=== PATIENT | female | born 1955 | race Caucasian/White ===

== ENCOUNTER 2016-10-07 18:29 | Inpatient (IN) | payer OTHER ==
[~2016-10-07] VITALS: Ht 160 cm; Wt 138.8 kg
--- NOTE | ~2016-10-07 | CATHLAB ---
[place] [address] [facility] [place] [address] INVASIVE PROCEDURE REPORT Name: FABIENNE GASTELUM Room #: 201-P [facility] IN ..#: [id number] Admission: 10/07/16 Attend Phys: Rogelio Coelho, Discharge: 10/11/16 Date of : 53 Date of Service: 11/07/16 1023 Report #: [id number] THIS REPORT FOR: //name// APPROVED REPORT Patient Location: Room #: Cardiac catheterization report Patient: Fabienne Gastelum Date of service 10 October 2016 Indications: 60-year-old female patient with chest pains with abnormal perfusion scan Security Public Safety Officer: Stan Rivera M.D. [facility] Procedure: #1 left heart catheterization #2 selective left and right coronary angiography #3 measurement of left ventricular end-diastolic pressure #4 ptca of the RCA and AMY stent deployment to the Proximal RCA with medtronics Resolute stent #5 supervision of conscious sedation Procedure: After informed consent was obtained the patient was brought to the cardiac catheterization laboratory supple condition. The right groin was prepped and draped in usual sterile manner. Utilizing a modified Seldinger technique after instillation of lidocaine for local anesthetic the right femoral artery was accessed without complications. 4 Moroccan sheath was then inserted. Under fluoroscopic realization a standard Chasidy left catheter was advanced and engaged the left coronary ostium. Cineangiography then ensued and oblique and angulated projections. The catheter was then removed and under similar fashion. Chasidy right catheter was advanced and engaged the right coronary ostium. Following angiography [facility] [address] [place] [address] INVASIVE PROCEDURE REPORT Name: FABIENNE GASTELUM Room #: 201-P [facility] IN [facility].#: [id number] Admission: 10/07/16 Attend Phys: Rogelio Coelho, Discharge: 10/11/16 Date of : 53 Date of Service: 11/07/16 1023 Report #: [id number] and oblique projections the catheter was then utilized to access the left ventricular chamber where pressures were obtained. Catheter was then removed and measurements of a pullback performed. At this point time was felt that percutaneous revascularization was indicated. 4 Moroccan sheaths were upsized the 6 Moroccan sheaths and a standard Chasidy right catheter was engaged into the right coronary ostium. Under fluoroscopic realization a 014 wire was then advanced distal to the lesion. A Medtronic balloon was then placed up across the initial lesion and dilated. Subsequent to this utilizing a Magnant as then exchanged mechanism and the Medtronic AMY resolute stents were then placed. These were expanded to optimal atmospheres without complications. Catheter was then removed wire removed sheaths sewn in place. Patient tolerated procedure well there were no complications. Findings: 1. Fluoroscopy: Under fluoroscopic realization there was evidence of calcific plaque involving epicardial coronary artery. No calcific plaquing identified and no valvular intramyocardial structures of the heart 2. Hemodynamics: a. Aortic pressure: 135/64 b. Left ventricular end-diastolic pressure: 25-30 c. Post intervention aortic pressure: 133/64 3. Rhythm: The patient's rhythm was sinus about entire procedure. 4. Angiography: This is a right coronary dominant system a. Left main: Normal or drink caliber bifurcates that into the descending left circumflex free of high-grade disease b. Left anterior descending: Small moderate caliber vessel which courses in the anterior interventricular sulcus with luminal irregularities. And continues in the mid and distal portion hypokinetic apex and terminating in the posterior aspect of the left ventricle. He gives rise to first diagonal branch and smaller second diagonal branches in its course with septal perforators all of which have luminal irregularities. c. Left circumflex: Small nondominant vessel which courses laterally with 2 small terminal marginal branches prior which is a 90% eccentric lesion. Lives between 2.0-2.5 mm diameter d. Right coronary artery: Moderate caliber dominant vessel which courses in the AV groove. The proximal segment there is a 90% focal lesion proximally involving a longer segment prior to the acute marginal 90% stenosis. The vessel then reconstitutes giving rise to [address] [address] INVASIVE PROCEDURE REPORT Name: FABIENNE GASTELUM MARIO Room #: 201-P [facility] IN M.R.#: [id number] Admission: 10/07/16 Attend Phys: Rogelio Coelho, Discharge: 10/11/16 Date of : 53 Date of Service: 11/07/16 1023 Report #: [id number] posterior descending posterior lateral branch was free of high-grade disease. e. Post intervention angiography: The right coronary artery is unchanged except for the following at the site of previous high-grade stenosis the vessel is widely patent with stents placed and noted. Flow is MATTHIEU 3 without any loss of side branch distal embolization or intraluminal thrombus noted. Conclusion Conclusion: 1. Coronary artery disease, severe, two-vessel 2. Successful percutaneous revascularization of the right coronary artery utilizing Medtronic resolute AMY stents 3. Abnormal hemodynamics with elevated left ventricular end-diastolic pressures 4. The patient will follow routine post stenting protocol to include dual antiplatelet therapy. <ELECTRONICALLY SIGNED> By: Stan Rivera MD 11/07/16 1023 1023 1023 Stan Rivera MD /INF
--- NOTE | ~2016-10-07 | HC ---
[facility] [place] [address] CONSULTATION Name: RANCHO GASTELUM Room #: 201-P ADM IN M.R.#: [id number] Admission: 10/07/16 Attend Phys: Meg Valdez Discharge: Date of : 53 Report #: [id number] THIS REPORT FOR: //name// CC: Felicita Valdez DATE OF SERVICE: 10/08/2016 HISTORY OF PRESENT ILLNESS: This is a very pleasant 60-year-old morbidly obese female who presented to the emergency room due to drowsiness. The patient states she was having significant problems with shortness of breath on day and presented to the emergency room. Of interest, reviewing old records, in 2014, she had an identical presentation with slight bump in the enzymes. She had a perfusion scan a day before which was negative for ischemia at that time and therefore, no further cardiac evaluation was done then. She now presented because of having increasing fatigability, tired, and sleepiness, but more so she states that she could not catch her breath. She states this came on fairly suddenly, although she had been on significant pain control medication as well as sleeping pill that she took prior to bed. She denies palpitations, has no chest tightness, heaviness or fullness and in fact at the time of angioplasty in 1991, she did not have symptoms then either. PAST MEDICAL HISTORY: 1. Morbid obesity. 2. Diabetes mellitus, not controlled with blood sugars running fasting in 140s. 3. Coronary artery disease, status post angioplasty without information to localize the intervention. 4. Chronic pain syndrome. 5. Macular degeneration. 6. History of Graves disease. 7. Degenerative joint disease. 8. COPD. 9. Gouty arthritis. 10. Severe anxiety, taking Xanax. 11. Sleep apnea syndrome, does not have the CPAP machine, but wears O2 at home. 12. in appearance. MEDICATIONS AT HOME: Cephalexin, potassium, Coreg, Amaryl, Lasix, Zoloft, Xanax, trazodone, Lopressor, Glucophage, nifedipine, Plavix, Humalog, Synthroid, OxyContin, aspirin, Neurontin, Celexa, Lantus, Valium, Claritin, Lipitor, Darvocet-N 100 and Mehama 5/325 p.r.n. PAST SURGICAL HISTORY: Significant for: 1. Multiple incision and drainage of right-sided perirectal abscesses. 2. Angioplasty of the coronaries in 1991. [facility] [address] [place] [address] CONSULTATION Name: RANCHO GASTELUM Room #: 201-P [facility] IN .R.#: [id number] Admission: 10/07/16 Attend Phys: Meg Valdez Discharge: Date of : 53 Report #: [id number] 3. Paraspinous injections. ELECTROCARDIOGRAM: Demonstrates sinus mechanism, no acute changes are noted. LABORATORY DATA: Demonstrates a BUN and creatinine of 27 and 1.1. White count is 11.6, hemoglobin is 12.1, hematocrit 38.4 with a platelet count of 250,000. RADIOLOGIC: Bibasilar infiltrates are noted with mild cardiomegaly present. REVIEW OF SYSTEMS: Except for symptoms previously mentioned and those commensurate with comorbid state, the 10-point review of systems is negative. PHYSICAL EXAMINATION: GENERAL: Morbidly obese female resting comfortably in no acute distress. VITAL SIGNS: Present and noted in the chart. HEENT: Normocephalic, atraumatic. Pupils are equal, round, reactive to light and accommodation. Extraocular muscles are intact. Sclerae and conjunctivae are anicteric. NECK: JVD is normal. Carotid upstrokes are bilaterally symmetrical. No bruits are heard. No thyromegaly. No lymphadenopathy. LUNGS: Clear to auscultation. No wheezes, rhonchi or crackles. No CVA tenderness. CARDIAC: Demonstrates a regular rhythm. Normal first and second heart sounds. No ventricular or atrial gallops, no rubs noted. No murmurs. No lifts or heaves, PMI normal. ABDOMEN: Demonstrates a cellulitic process in her pannus, but nondistended and normal bowel sounds noted. EXTREMITIES: Without cyanosis, clubbing or edema. Distal pulses are intact. DTR symmetrical. NEUROLOGIC: Cranial nerves 2-12 are grossly normal and symmetrical. PSYCHIATRIC: Alert, oriented with normal affect. SKIN: Warm and dry. IMPRESSION: 1. Dyspnea with elevated troponins. This is similar to what she had in the past. Anginal equivalent is clearly possible, but also the work of breathing due to chronic obstructive pulmonary disease may also have been the factor. We will monitor closely and evaluate. She is hemodynamically and electrically stable at present. 2. Coronary artery disease by history with what appears to be a non-ST segment elevation myocardial infarction. Again, electrically and hemodynamically stable. We will evaluate and discuss options. This is very similar to what she had 2 years ago and perfusion scan was negative, but in view of the lack of secondary prevention, I suspect that we have dramatic progression of disease. I discussed options of optimizing medical regimen versus invasive diagnosis studies. She does want to know exactly what is present, so we will proceed with [address] [address] CONSULTATION Name: RANCHO GASTELUM Room #: 201-P ADM IN M.R.#: [id number] Admission: 10/07/16 Attend Phys: Meg Lee Yaneliglo Discharge: Date of : 53 Report #: [id number] angiography on Monday. The risks, complications and alternatives to cath, angioplasty and conscious sedation were discussed with the patient, who voices understanding and wishes to proceed. 3. Diabetes mellitus, not well controlled, as per primary care. 4. Tobacco use and dependence. The patient states that she has quit 6 months ago and on the patches, although apparently on that. Either way, we emphasized the need for cessation. 5. Hypertension. We will monitor closely, seems to be fairly well controlled here in the hospital. <ELECTRONICALLY SIGNED> By: Stan Rivera MD 10/09/16 1142 1147 0141 Stan Rivera MD /nt
--- NOTE | ~2016-10-07 | HC ---
[facility] [place] [address] CONSULTATION Name: RANCHO GASTELUM Room #: 201-P ADM IN M.R.#: [id number] Admission: 10/07/16 Attend Phys: Meg Valdez Discharge: Date of : 53 Report #: [id number] THIS REPORT FOR: //name// CC: Felicita Valdez DATE OF SERVICE: 10/08/2016 HISTORY OF PRESENT ILLNESS: We were asked to see the patient due to a history of overdoses and chronic anxiety and presentation to the hospital with obtundation and the patient at this point is calm, compliant. She is denying suicidal hallucinations. She is pleasant. Her biggest concern is getting a Monica Mist with ice. She is denying any severe anxiety or depression. She feels that she made a mistake by combining her sleep aid in close proximity to pain pill and her Xanax and that could have led to the inability to breathe. She is on opiates. She is on Ambien. She does have a 1 mg dose of Xanax that in combination could represent something such as this. She is adamantly denying that she is a danger to herself. PAST PSYCHIATRIC HISTORY: She has a history of depression and anxiety. MEDICAL HISTORY: Obesity, hypertension, diabetes, thyroid issues, COPD, O2 dependent, history of CHF, chronic kidney disease stage 3. SOCIAL HISTORY: She lives with the roommates. She denies drinking. She says that she does not abuse her medications. She says her mood and anxiety have been under fair control. She has had previous admissions for misuse of medications over the years and those are noted on the chart, both at [place] and at [place] at least suspicion of that. Now, the patient adamantly denies this and she is complicated in terms of medical issues and some of the medications she is on could represent a narrow therapeutic window that it would be if taken incorrectly or the wrong timing or in combination as she said could result in difficulty breathing given also her complicated medical health. ALLERGIES: TO TYLENOL. FAMILY PSYCHIATRIC HISTORY: She has depression in the family. MENTAL STATUS EXAMINATION: Alert and oriented. Linear thought process. Affect is full range. Mood is positive. Thought process linear. Thought content, no suicidal or homicidal thoughts, delusions, or perceptual substances. Insight and judgment at this point is good and she says she will avoid taking medications appropriately so she will take them as prescribed. She will consider cutting down her Xanax if possible and I did caution her and given her [facility] [address] [place] [address] CONSULTATION Name: RANCHO GASTELUM Room #: 201-P ADM IN M.R.#: [id number] Admission: 10/07/16 Attend Phys: Meg Valdez Discharge: Date of : 53 Report #: [id number] difficulties with breathing that the use of benzodiazepines or benzodiazepine like medications could represent a dangerous such as this including opiates, but she says she has to have the opiates for her pain and she will respect how the other medications are prescribed. She would bring up these things with her daughter once she has followup. She is alert and oriented and who can do simple mathematics, is showing a reasonable memory for recent and remote events. She has a linear thought process. No suicidal or homicidal thoughts. Good abstract thought. IMPRESSION: AXIS I: Major depressive disorder, now moderate; anxiety, otherwise specified. AXIS II: Deferred. AXIS III: As above. AXIS IV: Moderate. AXIS V: Global Assessment Functioning currently 60%. PLAN: At this point, the patient was cautioned about how to take medications correctly. She agrees to this approach. She is denying that she abuses medications. She denies that she is a risk to herself. She has been pleasant, calm, and cooperative here and also off of 1:1 and acting appropriately in a way that does not demonstrate a risk to herself. Therefore, at this point, the patient can be discharged from the psychiatric standpoint once medically stabilized and I have cautioned her to consider cutting back on her Xanax and absolutely take it in the morning at least an hour away from any opiate medication and at least 6 hours away from any Ambien preparation. The patient agrees to this. Thank you for the consultation. If anything further, give me a call. By: [id number] Suraj Maddox MD /brooke
--- NOTE | ~2016-10-07 | 2DMMODE ---
[facility] [address] [place] [address] 2 D/M-MODE ECHOCARDIOGRAM Name: RANCHO GASTELUM Room #: 201-P ADM IN M.R.#: [id number] Admission: 10/07/16 Attend Phys: Meg Groves Discharge: Date of : 53 Date of Service: 10/08/16 1600 Report #: [id number] THIS REPORT FOR: //name// APPROVED REPORT Study performed: 10/08/2016 09:34:13 EXAM: Comprehensive 2D, Doppler, and color-flow Echocardiogram Patient Location: Bedside Room #: 201 Other Information Study Quality: Technically Difficult Indications COPD Diabetes CAD Hypertension/HDD Echo Enhancing Agent Indication: Endocardial border delineation Agent(s) / Amount(s) Used: Definity 2 cc 2D Dimensions RVDd: 35.49 mm LVEF(%): 55.16 (>50%) IVSd: 13.07 (7-11mm) LVOT Diam: 19.54 (18-24mm) LVDd: 48.65 mm PWd: 13.00 (7-11mm) Ascending Ao: 31.14 (22-36mm) LVDs: 34.67 (25-40mm) Aortic Root: 25.28 mm IVC: 26.00 mm Mccartney's LVEF: 55.16 % Volumes Left Atrial Volume (Systole) Single Plane 4CH: 67.61 mL Single Plane 2CH: 54.05 mL LA ESV Index: 30.00 mL/m2 Aortic Valve AoV Peak Camilo.: 2.02 m/s AO Peak Gr.: 16.32 mmHg LVOT Max P.09 mmHg LVOT Max V: 1.33 m/s PAUL Vmax: 1.98 cm2 [facility] [place] [address] [place] [address] 2 D/M-MODE ECHOCARDIOGRAM Name: RANCHO GASTELUM Room #: 201-P [facility] IN .R.#: [id number] Admission: 10/07/16 Attend Phys: Meg Groves Discharge: Date of : 53 Date of Service: 10/08/16 1600 Report #: [id number] Mitral Valve E/A Ratio: 1.3 MV Decel. Time: 191.96 ms MV E Max Camilo.: 1.35 m/s MV A Camilo.: 1.05 m/s MV PHT: 55.67 ms IVRT: 58.82 ms Pulmonary Valve PV Peak Camilo.: 1.29 m/s PV Peak Gr.: 6.70 mmHg Pulmonary Vein P Vein S: 0.45 m/s P Vein A: 0.16 m/s P Vein D: 0.67 m/s P Vein A Dur.: 110.7 msec P Vein S/D Ratio: 0.67 Tricuspid Valve RAP Estimate: 10.00 mmHg Left Ventricle The left ventricle is normal size. Regional wall motion is not well visualized but grossly normal. Mild concentric left ventricular hypertrophy. The overall left ventricular systolic function appears normal. LVEF is 55-60%. Grade II diastolic dysfunction Right Ventricle The right ventricle is normal size. The right ventricular systolic function is normal. Atria The left atrium size is normal. The right atrium size is normal. Aortic Valve The aortic valve is normal in structure. No aortic regurgitation is present. There is no aortic valvular stenosis. Mitral Valve The mitral valve is normal in structure. Trace mitral regurgitation. No evidence of mitral valve stenosis. Tricuspid Valve Tricuspid valve is not well visualized. Unable to assesss PA pressure. There is no tricuspid valve regurgitation noted. [facility] [address] [place] [address] 2 D/M-MODE ECHOCARDIOGRAM Name: RANCHO GASTELUM Room #: 201-P [facility] IN M.R.#: [id number] Admission: 10/07/16 Attend Phys: Meg Groves Discharge: Date of : 53 Date of Service: 10/08/16 1600 Report #: [id number] Pulmonic Valve The pulmonary valve is normal in structure. There is no pulmonic valvular regurgitation. Great Vessels The aortic root is normal in size. The ascending aorta is normal in size. IVC is dilated and collapses >50% with inspiration. Pericardium Small effusion vs epicardial fat. <Conclusion> Technically limited study Mild concentric left ventricular hypertrophy. LVEF is 55-60%. Grade II diastolic dysfunction Regional wall motion is not well visualized but grossly normal The aortic valve is grossly normal in structure. There is no aortic stenosis or insufficiency. The mitral valve is normal in structure. No mitral insufficiency Pulmonary artery pressure could not be reliably ascertained. Small effusion vs more likely epicardial fat. <ELECTRONICALLY SIGNED> By: Michele Hwang MD, FACC 10/08/161599 99 99 Michele Hwang MD, FAC /INF
--- NOTE | ~2016-10-07 | EKG ---
[address] [place] [address] ELECTROCARDIOGRAM REPORT Name: RANCHO GASTELUM Room #: 201-P ADM IN M.R.#: [id number] Admission: 10/07/16 Attend Phys: Meg Valdez Discharge: Date of : 53 Report #: [id number] THIS REPORT FOR: //name// [facility] ED Test Date: 2016-10-07 Test Time: 18:30:40 Pat Name: RANCHO GASTELUM Department: Room: 201 Gender: F Guest Services Ambassador: Juan MACIAS : 1955 Requested By: Monica Hong Order Number: [id number] MD: Michele Hwang Measurements Intervals [place] Rate: 94 P: 14 ID: [id number] QRS: 27 QRSD: 96 T: 64 QT: 384 QTc: 481 Interpretive Statements Sinus rhythm Occasional atrial premature complexes Compared to ECG 07/04/2014 10:37:55 Atrial premature complex(es) now present Electronically Signed On 10-08-2016 16:42:55 CDT by Michele Hwang [email or web address] <ELECTRONICALLY SIGNED> By: Michele Hwang MD, [facility] 10/08/16 1642 29 29 Michele Hwang MD, [facility] /EPI
[~2016-10-07 18:29] MED LIST: AMARYL1 MG PO; AMBIEN 5 MG TABL5 M1 PO; ATORVASTATIN CA40 MG PO; AZITHROMYCIN 2250 MG PO; CEFTIN 250 MG250 MG PO; CELEXA 10 MG TA10 M1 PO; CLARITIN10 MG PO; CLOPIDOGREL; D3-5050000 UNIT PO; DARVOCET-N 1001 EACH PO; KEFLEX250 MG PO; KLOR-CON 10 ER10 MEQ PO; LANTUS SC; LASIX 40 MG TAB40 M2 PO; LEVOTHYROXIN0.025 MG PO; NORCO 5-325 TA1 EACH PO; NOVOLIN 70100 UNIT/5 IJ; PERCOCET 10-321 EACH PO; PHENERGAN 25 MG25 M1 PO; PROPRANOLOL 1010 MG PO; QUINU10 PD PO; VALIUM5 MG PO; ZOLOFT25 MG PO
[2016-10-07 18:30] VITALS: BP 144/66
[2016-10-07 19:02] LABS: HEMATOCRIT 38.4 % (37.0-47.0); HEMOGLOBIN 12.1 gm/dL (12.0-15.0); MCH 27.9 pg (26.0-34.0); MCHC 31.4 g/dL (28.0-37.0); MCV 88.9 fL (80.0-100.0); PLATELET COUNT 250 thou/uL (150-400); RBC 4.33 mil/uL (4.20-5.00); RDW 18.4 % (10.5-14.5); WBC 11.6 thou/uL (4.0-11.0)
[2016-10-07 19:07] LABS: MANUAL DIFF YES
[2016-10-07 19:12] LABS: CALCIUM 9.8 mg/dL (8.5-10.1); CREATININE 1.1 mg/dL (0.6-1.0)
[2016-10-07 19:20] LABS: TROPONIN-I 0.54 ng/mL (<0.04-0.07)
[2016-10-07 19:26] LABS: ABSOLUTE NEUTROPHILS 9.7 thou/uL (1.4-8.2); ANISOCYTOSIS 1+; TOTAL CELL COUNT 100
[2016-10-07 20:17] LABS: APTT 27.7 Seconds (24.5-32.8)
[2016-10-07 20:28] LABS: ALKALINE PHOSPHATASE 116 U/L (46-116); DIRECT BILIRUBIN < 0.1 mg/dL (<0.1-0.3); SGOT 20 U/L (15-37); SGPT 16 U/L (30-65); TOTAL BILIRUBIN 0.2 mg/dL (<0.1-1.0); TOTAL PROTEIN 7.2 g/dL (6.4-8.2)
[2016-10-07 21:00] VITALS: BP 138/49
[2016-10-07 21:27] VITALS: BP 133/54
[2016-10-07 23:26] LABS: CK-MB MASS 4.3 ng/mL (<0.5-3.6)
[2016-10-07 23:47] VITALS: BP 145/61
[2016-10-08] MEDS ORDERED: XANAX1 MG PO (00:10)
[2016-10-08] MEDS ORDERED: LOPRESSOR25 PO (00:12)
[2016-10-08] MEDS ORDERED: TRAZODONE HCL100 MG PO (00:12)
[2016-10-08] MEDS ORDERED: METFORMIN HCL500 MG PO (00:13)
[2016-10-08] MEDS ORDERED: NIFEDIPINE ER90 MG PO (00:14)
[2016-10-08] MEDS ORDERED: PLAVIX 75 MG TA75 M1 PO (00:16)
[2016-10-08] MEDS ORDERED: HUMALOG MI100 UNIT/6 SQ (00:18)
[2016-10-08] MEDS ORDERED: LEVOTHYROXINE0.05 MG SQ (00:19)
[2016-10-08] MEDS ORDERED: OXYCONTIN10 M1 PO (00:20)
[2016-10-08] MEDS ORDERED: ASPIR 8181 MG PO (00:22)
[2016-10-08] MEDS ORDERED: NEURONTIN 300300 M1 PO (00:23)
[2016-10-08 01:25] LABS: HEMATOCRIT 38.6 % (37.0-47.0); HEMOGLOBIN 12.5 gm/dL (12.0-15.0); MCH 28.3 pg (26.0-34.0); MCHC 32.4 g/dL (28.0-37.0); MCV 87.6 fL (80.0-100.0); RBC 4.4 mil/uL (4.20-5.00); RDW 18.2 % (10.5-14.5); WBC 10.8 thou/uL (4.0-11.0)
[2016-10-08 01:35] LABS: ANION GAP 5 mmol/L (7-16); BUN 25 mg/dL (7-18); CALCIUM 9.6 mg/dL (8.5-10.1); CHLORIDE 102 mmol/L (98-107); CO2 34 mmol/L (21-32); GLUCOSE 140 mg/dL (74-106); POTASSIUM 4.1 mmol/L (3.5-5.1); SODIUM 141 mmol/L (136-145)
[2016-10-08 01:42] LABS: ALBUMIN 2.9 g/dL (3.4-5.0); ALKALINE PHOSPHATASE 110 U/L (46-116); CHOLESTEROL 152 mg/dL (<200); HDL CHOLESTEROL 37 mg/dL (>40); LDL CHOLESTEROL 94 mg/dL (<100); SGOT 18 U/L (15-37); SGPT 15 U/L (30-65); TC:HDL 4.1 Ratio (Not establshd); TOTAL BILIRUBIN 0.3 mg/dL (<0.1-1.0); TRIGLYCERIDE 105 mg/dL (<150); VLDL 21 mg/dL (<40)
[2016-10-08 01:43] LABS: SERUM ASSESSMENT Clear
[2016-10-08 01:44] LABS: TROPONIN-I 2.66 ng/mL (<0.04-0.07)
[2016-10-08 01:55] LABS: URINE BILIRUBIN NEGATIVE (Negative); URINE BLOOD 1+ (Negative); URINE COLOR YELLOW; URINE GLUCOSE-RANDOM* NEGATIVE (Negative); URINE KETONES NEGATIVE (Negative); URINE NITRITE POSITIVE (Negative); URINE PROTEIN (DIPSTICK) 2+ (Negative); URINE SPECIFIC GRAVITY >= 1.030 (1.003-1.035); URINE UROBILINOGEN 0.2 E.U./dl (0.2-1.0)
[2016-10-08 02:04] LABS: AMP/METHAMP Negative (Negative); BARBITURATES Negative (Negative); BENZODIAZEPINES POSITIVE (Negative); COCAINE Negative (Negative); METHADONE Negative (Negative); OPIATES POSITIVE (Negative); PCP Negative (Negative); THC Negative (Negative)
[2016-10-08 02:11] LABS: BACTERIA >30 Many /HPF (None Seen); CASTS None Seen /LPF (None Seen); SQUAMOUS 0-3 Few /LPF (0-3); URINE RBC 0-2 Rare /HPF (0-2); URINE WBC 0-5 Rare /HPF (0-5)
[2016-10-08 02:12] LABS: CRYSTALS None Seen /LPF (None Seen)
[2016-10-08 03:23] VITALS: BP 120/51
[2016-10-08 08:00] VITALS: BP 145/57
[2016-10-08 12:47] VITALS: BP 105/87
[2016-10-08 16:27] VITALS: BP 126/51
[2016-10-08] MEDS ORDERED: AUTOJECT 21 EACH (17:35)
[2016-10-08 19:16] VITALS: BP 131/56
[2016-10-08] MEDS ORDERED: ALLOPURINOL 10100 M1 PO (22:19)
[2016-10-09 02:10] LABS: GLYCOHEMOGLOBIN (HGB A1C) 7.8 % (4.8-5.6)
[2016-10-09 03:08] VITALS: BP 118/57
[2016-10-09 04:55] LABS: CALCIUM 9.3 mg/dL (8.5-10.1); CREATININE 1.1 mg/dL (0.6-1.0); POTASSIUM 3.9 mmol/L (3.5-5.1)
[2016-10-09 08:00] VITALS: BP 143/67
[2016-10-09 13:25] VITALS: BP 146/69
[2016-10-09 14:45] LABS: MAGNESIUM 1.6 mg/dL (1.8-2.4)
[2016-10-09 15:40] VITALS: BP 144/63
[2016-10-09 19:28] VITALS: BP 125/67
[2016-10-10] VITALS (13 sets, daily range): BP systolic 90–156; BP diastolic 54–86
[2016-10-10 04:37] LABS: ABSOLUTE NEUTROPHILS 7.3 thou/uL (1.4-8.2); BASOPHILS 0.4 % (0.0-2.0); EOSINOPHILS 1.2 % (0.0-3.0); HEMATOCRIT 34.5 % (37.0-47.0); LYMPHOCYTES 19.7 % (24.0-44.0); MCHC 31.9 g/dL (28.0-37.0); MCV 87.7 fL (80.0-100.0); MONOCYTES 8.3 % (1.0-8.0); PLATELET COUNT 272 thou/uL (150-400); POLYS 70.4 % (36.0-66.0); RBC 3.94 mil/uL (4.20-5.00); RDW 18.7 % (10.5-14.5); WBC 10.4 thou/uL (4.0-11.0)
[2016-10-10 04:43] LABS: MANUAL DIFF NO
[2016-10-10 04:59] LABS: CALCIUM 9.3 mg/dL (8.5-10.1); CREATININE 1.2 mg/dL (0.6-1.0); POTASSIUM 4.6 mmol/L (3.5-5.1)
[2016-10-11 00:20] VITALS: BP 123/49
[2016-10-11 03:22] VITALS: BP 132/63
[2016-10-11 03:49] LABS: HEMOGLOBIN 11.6 gm/dL (12.0-15.0); MCH 28.2 pg (26.0-34.0); MCHC 31.4 g/dL (28.0-37.0); RBC 4.11 mil/uL (4.20-5.00); RDW 18.7 % (10.5-14.5); WBC 9.6 thou/uL (4.0-11.0)
[2016-10-11 07:50] VITALS: BP 125/62
[2016-10-11] MEDS ORDERED: EFFIENT10 MG PO (10:13)
[2016-10-11 11:30] VITALS: BP 124/50
[2016-10-11 12:31] VITALS: BP 125/62
== END 2016-10-11 13:12 | disposition home health service (06) | DRG 246 ==
LOC: ER 18:29 → 2N 20:03 → EROBS 20:03 → 2N 21:05
PROVIDERS: Emergency Medicine; Internal Medicine; Internal Medicine Endocrinology, Diabetes & Metabolism; Nurse Practitioner Family
PROC: B2111ZZ Fluoroscopy of Multiple Coronary Arteries using Low Osmolar Contrast (ICD-10-PCS; principal; 2016-10-10)
PROC: 4A023N7 Measurement of Cardiac Sampling and Pressure, Left Heart, Percutaneous Approach (ICD-10-PCS; principal; 2016-10-10)
PROC: 027034Z Dilation of Coronary Artery, One Artery with Drug-eluting Intraluminal Device, Percutaneous Approach (ICD-10-PCS; principal; 2016-10-10)
DX: I21.4 Non-ST elevation (NSTEMI) myocardial infarction (principal); J18.9 Pneumonia, unspecified organism; I13.0 Hypertensive heart and chronic kidney disease with heart failure and stage 1 through stage 4 chronic kidney disease, or unspecified chronic kidney disease; J44.0 Chronic obstructive pulmonary disease with (acute) lower respiratory infection; Z68.43 Body mass index [BMI] 50.0-59.9, adult; M10.9 Gout, unspecified; H35.30 Unspecified macular degeneration; I25.10 Atherosclerotic heart disease of native coronary artery without angina pectoris; M19.90 Unspecified osteoarthritis, unspecified site; F41.9 Anxiety disorder, unspecified; F32.9 Major depressive disorder, single episode, unspecified; N18.3 Chronic kidney disease, stage 3 (moderate); I50.9 Heart failure, unspecified; E11.22 Type 2 diabetes mellitus with diabetic chronic kidney disease; E66.01 Morbid (severe) obesity due to excess calories; F17.210 Nicotine dependence, cigarettes, uncomplicated; G89.29 Other chronic pain; M54.9 Dorsalgia, unspecified; E78.5 Hyperlipidemia, unspecified; Z88.8 Allergy status to other drugs, medicaments and biological substances; Z79.899 Other long term (current) drug therapy; Z98.62 Peripheral vascular angioplasty status; Z79.891 Long term (current) use of opiate analgesic
CPT/HCPCS: 10081

== ENCOUNTER 2016-11-25 17:05 | Inpatient (IN) | payer OTHER ==
[~2016-11-25] VITALS: Ht 167.6 cm; Wt 139.7 kg
--- NOTE | ~2016-11-25 | HC ---
[facility] [place] [address] CONSULTATION Name: RANCHO GASTELUM Room #: 245-P ADM IN M.R.#: [id number] Admission: 11/25/16 Attend Phys: Mihir Pelaez MD Discharge: Date of : 53 Report #: [id number] THIS REPORT FOR: //name// CC: Felicita Pelaez DATE OF SERVICE: 11/26/2016 REASON FOR CONSULTATION: Elevated troponin and coronary artery disease. HISTORY OF PRESENT ILLNESS: The patient is a 61-year-old woman with diabetes, morbid obesity, COPD, and sleep apnea syndrome who presented on 10/07/2016 with chest pain. She was found to have severe 2-vessel coronary disease and underwent medicated stenting of the right coronary. The terminal branches of the circumflex exhibited a high-grade disease. This was too small to have been intervened upon. The LAD exhibited mild plaquing and her left ventricular systolic function was normal. She was discharged home on dual antiplatelet therapy. She now presents with hypoxic and hypercapnic respiratory failure requiring intubation. She was found down at home unresponsive. With improvement in her hypoxemia and hypercapnia, her mental status improved. She is currently awake and alert. She denies chest heaviness, pressure, or recurrent ischemic type symptoms. No history of near syncope or syncope. There is concern over possible aspiration. There have been no heart failure symptoms including orthopnea, paroxysmal nocturnal dyspnea, or lower extremity edema. MEDICATIONS: Medicines include levothyroxine 50 mcg daily, nifedipine ER 90 mg daily, atorvastatin 40 mg daily, Lasix 40 mg daily, allopurinol, glimepiride 4 mg twice daily, sertraline 100 mg daily, metformin 500 mg daily, metoprolol 50 mg twice daily, Effient 10 mg daily, aspirin 325 mg daily, potassium 10 mEq daily, and Neurontin. Past history and medical records have been reviewed and are notable for morbid obesity, diabetes, chronic pain syndrome, Graves' disease, arthritis, anxiety disorder, and sleep apnea. She has a history of perirectal abscess drainage and remote angioplasty. SOCIAL HISTORY: She is a smoker. FAMILY HISTORY: Unremarkable for premature coronary disease. REVIEW OF SYSTEMS: Negative except as that noted above. PHYSICAL EXAMINATION: GENERAL: Reveals a morbidly obese, intubated and ventilated woman. VITAL SIGNS: Blood pressure is 142/70, heart rate of 80 and regular, she is afebrile, 5 feet 6 inches tall, and [address] [address] CONSULTATION Name: RANCHO GASTELUM Room #: 245-P [facility].#: [id number] Admission: 11/25/16 Attend Phys: Mihir Pelaez MD Discharge: Date of : 53 Report #: [id number] HEENT: There are neither xanthelasma, subcutaneous xanthomata, oral mucosal or digital cyanosis, or kyphoscoliosis present. CHEST: Reveals scattered rhonchi. CARDIAC: Regular rate and rhythm with normal S1, S2. ABDOMEN: Soft, obese, and nontender. EXTREMITIES: Without cyanosis, clubbing, or edema. Radial pulses are 2+. NEUROLOGIC: She is alert with a nonfocal exam. LABORATORY DATA: Sodium is 138, potassium 4.4, and creatinine 1.0. Troponin 1.87. White count 12, hemoglobin 11, hematocrit 37, and platelet count 241. Chest x-ray demonstrates bilateral pulmonary infiltrates. EKG: Sinus rhythm, normal tracing. IMPRESSION: 1. Non-Q wave myocardial infarction. This is in the setting of recent right coronary stenting and known small-vessel circumflex disease. 2. Hypoxemic, hypercapnic respiratory failure; pneumonia. 3. Hypertension. 4. Dyslipidemia. 5. Tobacco dependency. 6. Diabetes. 7. Morbid obesity. RECOMMENDATIONS: Continued use of Effient and aspirin. A small troponin rise is not unexpected in the setting of her known small-vessel disease. I doubt problem with her recently placed right coronary, medicated stents. Continued use of statin and beta-lolly is recommended. Thank you for asking me to participate in her care. <ELECTRONICALLY SIGNED> By: Michele Hwang MD, FACC 11/29/16 1633 1001 1106 Michele Hwang MD, FACC /nt
--- NOTE | ~2016-11-25 | HC ---
[address] [address] CONSULTATION Name: RANCHO GASTELUM Room #: 204-P ADM IN M.R.#: [id number] Admission: 11/25/16 Attend Phys: Mihir Pelaez MD Discharge: Date of : 53 Report #: [id number] THIS REPORT FOR: //name// CC: Felicita Pelaez DATE OF SERVICE: 11/25/2016 REASON FOR CONSULTATION: Acute respiratory failure. Forty minutes of critical care time. IMPRESSION: 1. Acute hypercapnic hypoxic respiratory failure. 2. Healthcare-associated pneumonia. 3. Encephalopathy, multifactorial. 4. Hypertension. 5. Diabetes. 6. Chronic pain. 7. Depression. 8. Tobacco use. PLAN: Corticosteroids. Aerosol therapy. Avoid narcotics. Continue BiPAP. Follow up lab and x-ray in a.m. HISTORY OF PRESENT ILLNESS: A 61-year-old female brought to the emergency room for altered mental status, found on floor at home, O2 was titrated, also had nausea and vomiting. She was given Narcan in the ER and showed some improvement. PAST MEDICAL HISTORY: 1. CHF. 2. Diabetes. 3. COPD. 4. Hypothyroidism. 5. Hypertension. 6. Recent admission for pneumonia. PAST SURGICAL HISTORY: I and D, rectal abscess. FAMILY HISTORY: Unobtainable. SOCIAL HISTORY: Positive tobacco. ALLERGIES: TYLENOL per chart. [address] [address] CONSULTATION Name: RANCHO GASTELUM Room #: 204-P [facility].#: [id number] Admission: 11/25/16 Attend Phys: Mihir Pelaez MD Discharge: Date of : 53 Report #: [id number] MEDICATIONS: Medication list was compiled and included Lasix, sertraline, alprazolam, trazodone, metoprolol, metformin, nifedipine, levothyroxine, oxycodone, aspirin, gabapentin, allopurinol, citalopram, diazepam, and loratadine. SOCIAL HISTORY: Positive tobacco. Unknown drug abuse. REVIEW OF SYSTEMS: Include hypertension, coronary artery disease, macular degeneration, COPD, gout, hyperlipidemia, hypothyroidism, anxiety, depression, bipolar, chronic back pain, and sleep apnea. PHYSICAL EXAMINATION: GENERAL: The patient was seen multiple times in the emergency room. She would wake up and when they were placing PICC line, she was actually very awake and gave me a thumps up. VITAL SIGNS: Pulse 93 and respiratory rate 22. LUNGS: Showed decreased breath sounds, coarse. HEART: Regular. ABDOMEN: Bowel sounds present. EXTREMITIES: Showed positive edema. NEUROLOGIC: Moved all extremities. LABORATORY AND DIAGNOSTIC DATA: Chest x-ray showed perihilar infiltrate, question if this could be aspiration pneumonia. BUN 35 and creatinine 1.1. ProBNP 543. Initial gas, 7.2, pCO2 73, pO2 214, and carboxyhemoglobin 5.2. White count 13, hemoglobin 11, platelets 297, no bands. Repeat ABG showed 7.257, pCO2 63, pO2 65 on IPAP 16, EPAP 5, rate of 14, 50%. INR 1. Troponin 0.09. Chest x-ray showed cardiomegaly and infiltrates. <ELECTRONICALLY SIGNED> By: Crow Milan MD 12/05/16 1511 2205 0050 Crow Milan MD /nt
--- NOTE | ~2016-11-25 | EKG ---
[address] [employer] [place] [address] ELECTROCARDIOGRAM REPORT Name: RANCHO GASTELUM Room #: 245-P ADM IN M.R.#: [id number] Admission: 11/25/16 Attend Phys: Mihir Pelaez MD Discharge: Date of : 53 Report #: [id number] THIS REPORT FOR: //name// [facility] ED Test Date: 2016-11-25 Test Time: 17:11:46 Pat Name: RANCHO GASTELUM Department: Room: 245 Gender: F [employer] Mate: BOLIVAR : 1955 Requested By: Yadira Friedman Order Number: [id number] MD: Michele Hwang Measurements Intervals [place] Rate: 92 P: 14 SD: 197 QRS: 35 QRSD: 101 T: 63 QT: 398 QTc: 493 Interpretive Statements Sinus rhythm Low voltage, precordial leads Borderline prolonged QT interval Compared to ECG 10/07/2016 18:30:40 Atrial premature complex(es) no longer present Electronically Signed On 11-27-2016 10:48:31 CDT by Michele Hwang [email or web address] <ELECTRONICALLY SIGNED> By: Michele Hwang MD, [facility] 11/27/16 1048 1711 1711 Michele Hwang MD, [facility] /EPI
[~2016-11-25 17:05] MED LIST changes: +ALLOPURINOL 10100 M1 PO; +ASPIR 8181 MG PO; +AUTOJECT 21 EACH; +EFFIENT10 MG PO; +HUMALOG MI100 UNIT/6 SQ; +LEVOTHYROXINE0.05 MG SQ; +LOPRESSOR25 PO; +METFORMIN HCL500 MG PO; +NEURONTIN 300300 M1 PO; +NIFEDIPINE ER90 MG PO; +OXYCONTIN10 M1 PO; +PLAVIX 75 MG TA75 M1 PO; +TRAZODONE HCL100 MG PO; +XANAX1 MG PO
[2016-11-25 17:23] LABS: ABSOLUTE NEUTROPHILS 9.4 thou/uL (1.4-8.2); EOSINOPHILS 2.3 % (0.0-3.0); HEMOGLOBIN 11.3 gm/dL (12.0-15.0); LYMPHOCYTES 17.9 % (24.0-44.0); MCH 26.4 pg (26.0-34.0); MCHC 30.5 g/dL (28.0-37.0); MCV 86.5 fL (80.0-100.0); MONOCYTES 7.2 % (1.0-8.0); PLATELET COUNT 297 thou/uL (150-400); POLYS 71.6 % (36.0-66.0); RBC 4.28 mil/uL (4.20-5.00); RDW 19.1 % (10.5-14.5); WBC 13.1 thou/uL (4.0-11.0)
[2016-11-25 17:28] LABS: CALCIUM 8.4 mg/dL (8.5-10.1); CREATININE 1.1 mg/dL (0.6-1.0); POTASSIUM 3.8 mmol/L (3.5-5.1)
[2016-11-25 17:38] LABS: MANUAL DIFF NO
[2016-11-25 17:43] LABS: ABG SAMPLE TYPE ARTERIAL; BE(vivo) -1.4 mmol/L (-2 to +3); HCO3 28.1 mmol/L (22.0-26.0); LACTATE 1.11 mmol/L (0.5-2.0); O2(CT) 16.2 mL/dL (15.0-23.0); O2Hb 93.3 % (92.0-98.0); PO2 214.2 mmHg (80.0-100.0); sO2 99.2 % (92.0-98.0); tCO2 30.4 mmol/L (24.0-30.0)
[2016-11-25 17:44] LABS: PCO2 73.6 mmHg (35.0-45.0); STICK SITE L.BRACHIAL
[2016-11-25 17:58] LABS: ANISOCYTOSIS 2+; LARGE PLATELETS FEW; POLYCHROMASIA 2+
[2016-11-25 19:05] LABS: ABG SAMPLE TYPE ARTERIAL; BE(vivo) -0.8 mmol/L (-2 to +3); HCO3 27.4 mmol/L (22.0-26.0); LACTATE 1.29 mmol/L (0.5-2.0); O2(CT) 14.6 mL/dL (15.0-23.0); O2Hb 85.1 % (92.0-98.0); PO2 65.2 mmHg (80.0-100.0); sO2 89.1 % (92.0-98.0); tCO2 29.4 mmol/L (24.0-30.0)
[2016-11-25 19:06] LABS: STICK SITE L.BRACHIAL; pH 7.257 (7.360-7.450)
[2016-11-25 19:07] LABS: ABG COMMENT BIPAP 16/5
[2016-11-25 20:08] LABS: APTT 26.7 Seconds (24.5-32.8); MAGNESIUM 1.9 mg/dL (1.8-2.4); PROTIME 9.9 Seconds (9.3-11.4); TROPONIN-I 0.09 ng/mL (<0.04-0.07)
[2016-11-25] MEDS ORDERED: ZYRTEC10 M5 (21:20)
[2016-11-25] MEDS ORDERED: PREDNISONE 5 MG5 M1 (21:23)
[2016-11-25] MEDS ORDERED: [UNRECOGNIZED DRUG - OTHER] (21:24)
[2016-11-25] MEDS ORDERED: PLAVIX 75 MG TA75 MG PO (21:24)
[2016-11-25] MEDS ORDERED: AMBIEN 5 MG TABL5 M1 (21:24)
[2016-11-25] MEDS ORDERED: ACCUNEB SO1.25 MG/1 (21:25)
[2016-11-25] MEDS ORDERED: VENTOLIN HFA 1818 GM INH (21:25)
[2016-11-25] MEDS ORDERED: NITROGLYCERIN0.4 MG SUBLING (21:26)
[2016-11-25] MEDS ORDERED: HUMALOG MI100 UNIT/6 SUBQ (21:26)
[2016-11-25 21:30] VITALS: BP 166/63
[2016-11-25 22:09] VITALS: BP 167/72
[2016-11-25 22:30] VITALS: BP 166/63
[2016-11-25 23:00] VITALS: BP 153/64
[2016-11-25 23:30] VITALS: BP 143/68
[2016-11-26] VITALS (71 sets, daily range): BP systolic 84–181; BP diastolic 44–143
[2016-11-26 01:12] LABS: ABG SAMPLE TYPE ARTERIAL; BE(vivo) 0.3 mmol/L (-2 to +3); HCO3 32.3 mmol/L (22.0-26.0); LACTATE 0.98 mmol/L (0.5-2.0); O2(CT) 15.5 mL/dL (15.0-23.0); sO2 82.6 % (92.0-98.0); tCO2 35.4 mmol/L (24.0-30.0)
[2016-11-26 01:13] LABS: O2Hb 84.9 % (92.0-98.0); STICK SITE R.RADIAL; pH 7.127 (7.360-7.450)
[2016-11-26 01:14] LABS: Pressure Support 8 cm H20
[2016-11-26 05:36] LABS: HEMATOCRIT 37.1 % (37.0-47.0); HEMOGLOBIN 11.5 gm/dL (12.0-15.0); MCH 26.3 pg (26.0-34.0); MCV 84.6 fL (80.0-100.0); PLATELET COUNT 241 thou/uL (150-400); RBC 4.38 mil/uL (4.20-5.00); RDW 18.7 % (10.5-14.5); WBC 12.4 thou/uL (4.0-11.0)
[2016-11-26 05:41] LABS: ABG SAMPLE TYPE ARTERIAL; BE(vivo) 3.9 mmol/L (-2 to +3); HCO3 32.5 mmol/L (22.0-26.0); LACTATE 1.53 mmol/L (0.5-2.0); O2(CT) 15.8 mL/dL (15.0-23.0); O2Hb 88.2 % (92.0-98.0); PCO2 69.6 mmHg (35.0-45.0); PO2 58.6 mmHg (80.0-100.0); STICK SITE R.RADIAL; pH 7.287 (7.360-7.450); sO2 86.3 % (92.0-98.0); tCO2 34.6 mmol/L (24.0-30.0)
[2016-11-26 05:42] LABS: FIO2 100 %; TIDAL VOLUME 500 ml
[2016-11-26 05:45] LABS: MANUAL DIFF YES
[2016-11-26 05:48] LABS: ALBUMIN 2.8 g/dL (3.4-5.0); CALCIUM 8.3 mg/dL (8.5-10.1); MAGNESIUM 1.5 mg/dL (1.8-2.4); POTASSIUM 4.4 mmol/L (3.5-5.1); TOTAL BILIRUBIN 0.2 mg/dL (<0.1-1.0); TOTAL PROTEIN 6.8 g/dL (6.4-8.2)
[2016-11-26 08:00] LABS: ANISOCYTOSIS 1+; NUCLEATED RBCS 1 /100WBC; POIKILOCYTOSIS SLIGHT; POLYCHROMASIA SLIGHT; TOTAL CELL COUNT 100
[2016-11-26 08:01] LABS: LARGE PLATELETS OCCASIONAL; OTHER MORPHOLOGY STOMATOCYTES
[2016-11-26 10:08] LABS: ABG SAMPLE TYPE ARTERIAL; BE(vivo) 7.9 mmol/L (-2 to +3); HCO3 33.5 mmol/L (22.0-26.0); LACTATE 1.61 mmol/L (0.5-2.0); O2(CT) 16.2 mL/dL (15.0-23.0); O2Hb 97.2 % (92.0-98.0); PCO2 51.1 mmHg (35.0-45.0); pH 7.434 (7.360-7.450); sO2 97.5 % (92.0-98.0)
[2016-11-26 10:10] LABS: ABG COMMENT A/C; STICK SITE R.RADIAL; TIDAL VOLUME 500 ml
[2016-11-26 21:50] LABS: URINE BILIRUBIN NEGATIVE (Negative); URINE BLOOD NEGATIVE (Negative); URINE COLOR YELLOW; URINE GLUCOSE-RANDOM* NEGATIVE (Negative); URINE KETONES NEGATIVE (Negative); URINE LEUKOCYTES-REFLEX TRACE (Negative); URINE PROTEIN (DIPSTICK) TRACE (Negative); URINE SPECIFIC GRAVITY <= 1.005 (1.003-1.035); URINE UROBILINOGEN 0.2 E.U./dl (0.2-1.0)
[2016-11-26 21:58] LABS: AMP/METHAMP Negative (Negative); BARBITURATES Negative (Negative); BENZODIAZEPINES POSITIVE (Negative); COCAINE Negative (Negative); METHADONE Negative (Negative); OPIATES Negative (Negative); PCP Negative (Negative); THC Negative (Negative)
[2016-11-27] VITALS (26 sets, daily range): BP systolic 94–152; BP diastolic 44–108
[2016-11-27 04:40] LABS: HEMATOCRIT 33.2 % (37.0-47.0); HEMOGLOBIN 10.6 gm/dL (12.0-15.0); MCV 84.3 fL (80.0-100.0); RBC 3.93 mil/uL (4.20-5.00); RDW 18.5 % (10.5-14.5); WBC 9.9 thou/uL (4.0-11.0)
[2016-11-27 04:59] LABS: ALBUMIN 2.3 g/dL (3.4-5.0); CALCIUM 8.5 mg/dL (8.5-10.1); CREATININE 0.8 mg/dL (0.6-1.0); POTASSIUM 3.6 mmol/L (3.5-5.1); TOTAL BILIRUBIN 0.3 mg/dL (<0.1-1.0); TOTAL PROTEIN 5.9 g/dL (6.4-8.2)
[2016-11-27 05:34] LABS: ABG SAMPLE TYPE ARTERIAL; BE(vivo) 6.5 mmol/L (-2 to +3); HCO3 31.3 mmol/L (22.0-26.0); LACTATE 1.92 mmol/L (0.5-2.0); O2Hb 91.4 % (92.0-98.0); PCO2 46.2 mmHg (35.0-45.0); PO2 62.9 mmHg (80.0-100.0); STICK SITE L.RADIAL; pH 7.449 (7.360-7.450); sO2 92.8 % (92.0-98.0); tCO2 32.7 mmol/L (24.0-30.0)
[2016-11-27 05:35] LABS: ABG COMMENT A/C MODE; TIDAL VOLUME 500 ml
[2016-11-28] VITALS (19 sets, daily range): BP systolic 76–129; BP diastolic 41–65
[2016-11-28 03:07] LABS: HEMATOCRIT 29.9 % (37.0-47.0); HEMOGLOBIN 9.6 gm/dL (12.0-15.0); MCH 26.6 pg (26.0-34.0); MCHC 32.1 g/dL (28.0-37.0); MCV 82.9 fL (80.0-100.0); PLATELET COUNT 216 thou/uL (150-400); RBC 3.61 mil/uL (4.20-5.00); RDW 18.8 % (10.5-14.5); WBC 9.6 thou/uL (4.0-11.0)
[2016-11-28 03:32] LABS: MANUAL DIFF YES
[2016-11-28 03:36] LABS: CALCIUM 8.4 mg/dL (8.5-10.1); CREATININE 1.1 mg/dL (0.6-1.0); POTASSIUM 3.7 mmol/L (3.5-5.1); TOTAL BILIRUBIN 0.5 mg/dL (<0.1-1.0); TOTAL PROTEIN 5.6 g/dL (6.4-8.2)
[2016-11-28 05:43] LABS: ABG SAMPLE TYPE ARTERIAL; BE(vivo) 2.4 mmol/L (-2 to +3); HCO3 26.6 mmol/L (22.0-26.0); LACTATE 1.53 mmol/L (0.5-2.0); O2(CT) 13.4 mL/dL (15.0-23.0); O2Hb 90.7 % (92.0-98.0); PCO2 39.6 mmHg (35.0-45.0); PO2 63.1 mmHg (80.0-100.0); STICK SITE L.RADIAL; pH 7.445 (7.360-7.450); tCO2 27.8 mmol/L (24.0-30.0)
[2016-11-28 05:44] LABS: TIDAL VOLUME 500 ml
[2016-11-28 08:49] LABS: ABSOLUTE NEUTROPHILS 8.8 thou/uL (1.4-8.2); ANISOCYTOSIS 1+; PLATELET ESTIMATE NORMAL; POLYCHROMASIA 1+; TOTAL CELL COUNT 100
[2016-11-28 12:27] LABS: ABG SAMPLE TYPE ARTERIAL; BE(vivo) 1.6 mmol/L (-2 to +3); LACTATE 1.05 mmol/L (0.5-2.0); O2(CT) 13.3 mL/dL (15.0-23.0); O2Hb 89.8 % (92.0-98.0); PCO2 53.1 mmHg (35.0-45.0); PO2 66.2 mmHg (80.0-100.0); sO2 91.7 % (92.0-98.0); tCO2 29.6 mmol/L (24.0-30.0)
[2016-11-28 12:28] LABS: STICK SITE L.BRACHIAL
[2016-11-28 12:30] LABS: Pressure Support 10 cm H20; TIDAL VOLUME 320 ml
[2016-11-29] VITALS (14 sets, daily range): BP systolic 106–153; BP diastolic 51–86
[2016-11-29 12:53] LABS: HEMATOCRIT 29.7 % (37.0-47.0); HEMOGLOBIN 9.5 gm/dL (12.0-15.0); MCH 26.5 pg (26.0-34.0); MCHC 31.9 g/dL (28.0-37.0); MCV 82.9 fL (80.0-100.0); RBC 3.58 mil/uL (4.20-5.00); RDW 18.4 % (10.5-14.5); WBC 6.5 thou/uL (4.0-11.0)
[2016-11-29 13:03] LABS: CREATININE 0.8 mg/dL (0.6-1.0); POTASSIUM 3.5 mmol/L (3.5-5.1)
[2016-11-29 13:12] LABS: TOTAL BILIRUBIN 0.5 mg/dL (<0.1-1.0); TOTAL PROTEIN 5.9 g/dL (6.4-8.2); TROPONIN-I 0.25 ng/mL (<0.04-0.07)
[2016-11-29 15:10] LABS: ABG COMMENT CPAP TRIAL.; ABG SAMPLE TYPE ARTERIAL; BE(vivo) 0.3 mmol/L (-2 to +3); HCO3 26.4 mmol/L (22.0-26.0); LACTATE 0.78 mmol/L (0.5-2.0); O2(CT) 13.8 mL/dL (15.0-23.0); O2Hb 91.3 % (92.0-98.0); PCO2 49.3 mmHg (35.0-45.0); PO2 70.6 mmHg (80.0-100.0); Pressure Support 10 cm H20; STICK SITE L.RADIAL; pH 7.347 (7.360-7.450); sO2 93.2 % (92.0-98.0); tCO2 27.9 mmol/L (24.0-30.0)
[2016-11-30] VITALS (18 sets, daily range): BP systolic 106–167; BP diastolic 48–137
[2016-11-30 11:36] LABS: HEMOGLOBIN 8.9 gm/dL (12.0-15.0); MCH 26.5 pg (26.0-34.0); MCHC 31.7 g/dL (28.0-37.0); MCV 83.8 fL (80.0-100.0); RBC 3.34 mil/uL (4.20-5.00); RDW 18.9 % (10.5-14.5); WBC 7.3 thou/uL (4.0-11.0)
[2016-11-30 11:43] LABS: CALCIUM 9.4 mg/dL (8.5-10.1); CREATININE 0.7 mg/dL (0.6-1.0); POTASSIUM 3.4 mmol/L (3.5-5.1)
[2016-11-30 11:47] LABS: MAGNESIUM 1.8 mg/dL (1.8-2.4); PHOSPHORUS 3.1 mg/dL (2.5-4.9)
[2016-12-01] VITALS (7 sets, daily range): BP systolic 86–159; BP diastolic 36–120
[2016-12-01 05:19] LABS: ABG SAMPLE TYPE ARTERIAL; HCO3 26.9 mmol/L (22.0-26.0); LACTATE 0.83 mmol/L (0.5-2.0); O2(CT) 13.2 mL/dL (15.0-23.0); O2Hb 94.1 % (92.0-98.0); PCO2 43.5 mmHg (35.0-45.0); PO2 75.1 mmHg (80.0-100.0); pH 7.409 (7.360-7.450); sO2 95.1 % (92.0-98.0); tCO2 28.2 mmol/L (24.0-30.0)
[2016-12-01 05:20] LABS: ABG COMMENT A/C MODE; STICK SITE R.RADIAL; TIDAL VOLUME 500 ml
[2016-12-01 05:46] LABS: HEMATOCRIT 26.6 % (37.0-47.0); HEMOGLOBIN 8.5 gm/dL (12.0-15.0)
[2016-12-01 12:37] LABS: ABG SAMPLE TYPE ARTERIAL; BE(vivo) -0.3 mmol/L (-2 to +3); HCO3 24.7 mmol/L (22.0-26.0); LACTATE 1.05 mmol/L (0.5-2.0); O2(CT) 14.3 mL/dL (15.0-23.0); O2Hb 92.5 % (92.0-98.0); PCO2 42.2 mmHg (35.0-45.0); PO2 76.7 mmHg (80.0-100.0); pH 7.386 (7.360-7.450); sO2 95.2 % (92.0-98.0)
[2016-12-01 12:39] LABS: Pressure Support 8 cm H20; STICK SITE L.RADIAL; TIDAL VOLUME 440 ml
[2016-12-02] VITALS (19 sets, daily range): BP systolic 105–171; BP diastolic 36–106
[2016-12-02 05:29] LABS: HEMATOCRIT 28.3 % (37.0-47.0); HEMOGLOBIN 9.1 gm/dL (12.0-15.0)
[2016-12-03 03:12] VITALS: BP 149/47
[2016-12-03 05:08] LABS: HEMATOCRIT 29.9 % (37.0-47.0); HEMOGLOBIN 9.5 gm/dL (12.0-15.0); MCH 26.3 pg (26.0-34.0); MCHC 31.9 g/dL (28.0-37.0); MCV 82.2 fL (80.0-100.0); RBC 3.63 mil/uL (4.20-5.00); RDW 18.4 % (10.5-14.5)
[2016-12-03 05:12] LABS: CREATININE 0.8 mg/dL (0.6-1.0)
[2016-12-03 05:47] LABS: POTASSIUM 2.7 mmol/L (3.5-5.1)
[2016-12-03 13:15] LABS: MAGNESIUM 1.1 mg/dL (1.8-2.4)
[2016-12-03 13:43] LABS: POTASSIUM 2.9 mmol/L (3.5-5.1)
[2016-12-03 15:06] VITALS: BP 124/50
[2016-12-03 16:27] VITALS: BP 144/61
[2016-12-03 19:18] VITALS: BP 167/71
[2016-12-04 02:14] LABS: CALCIUM 9.7 mg/dL (8.5-10.1); CREATININE 0.8 mg/dL (0.6-1.0)
[2016-12-04 02:16] LABS: POTASSIUM 4.5 mmol/L (3.5-5.1)
[2016-12-04 03:28] VITALS: BP 152/65
[2016-12-04 07:25] VITALS: BP 136/70
[2016-12-04 09:29] LABS: HEMOGLOBIN 10.1 gm/dL (12.0-15.0); MCH 26.4 pg (26.0-34.0); MCHC 31.7 g/dL (28.0-37.0); MCV 83.4 fL (80.0-100.0); RBC 3.83 mil/uL (4.20-5.00); RDW 18.2 % (10.5-14.5); WBC 7.2 thou/uL (4.0-11.0)
[2016-12-04 11:35] VITALS: BP 137/78
[2016-12-04 15:51] VITALS: BP 138/67
[2016-12-04 19:20] VITALS: BP 131/65
[2016-12-05 04:00] VITALS: BP 140/59
[2016-12-05 05:29] LABS: CALCIUM 10.1 mg/dL (8.5-10.1); CREATININE 1.1 mg/dL (0.6-1.0); POTASSIUM 3.7 mmol/L (3.5-5.1)
[2016-12-05 05:32] LABS: HEMATOCRIT 29.2 % (37.0-47.0); HEMOGLOBIN 9.4 gm/dL (12.0-15.0); MCH 26.6 pg (26.0-34.0); MCHC 32.1 g/dL (28.0-37.0); MCV 82.8 fL (80.0-100.0); RBC 3.52 mil/uL (4.20-5.00); RDW 18.2 % (10.5-14.5); WBC 10.1 thou/uL (4.0-11.0)
[2016-12-05 07:15] VITALS: BP 134/53
[2016-12-05 11:20] VITALS: BP 128/69
[2016-12-05 15:07] VITALS: BP 132/62
[2016-12-05 20:18] VITALS: BP 134/42
[2016-12-06 03:39] VITALS: BP 129/58
[2016-12-06 05:47] LABS: ABSOLUTE NEUTROPHILS 3.9 thou/uL (1.4-8.2); BASOPHILS 0.6 % (0.0-2.0); EOSINOPHILS 0.7 % (0.0-3.0); HEMATOCRIT 26.4 % (37.0-47.0); HEMOGLOBIN 8.3 gm/dL (12.0-15.0); LYMPHOCYTES 35.6 % (24.0-44.0); MCH 26.3 pg (26.0-34.0); MCHC 31.5 g/dL (28.0-37.0); MCV 83.6 fL (80.0-100.0); MONOCYTES 9.7 % (1.0-8.0); PLATELET COUNT 313 thou/uL (150-400); POLYS 53.4 % (36.0-66.0); RBC 3.16 mil/uL (4.20-5.00); RDW 18.9 % (10.5-14.5); WBC 7.4 thou/uL (4.0-11.0)
[2016-12-06 05:49] LABS: MANUAL DIFF NO
[2016-12-06 05:58] LABS: CALCIUM 9.6 mg/dL (8.5-10.1); MAGNESIUM 1.7 mg/dL (1.8-2.4); POTASSIUM 3.5 mmol/L (3.5-5.1)
[2016-12-06 07:20] VITALS: BP 150/70
[2016-12-06 11:17] VITALS: BP 133/59
[2016-12-06 15:48] VITALS: BP 135/83
[2016-12-06 19:12] LABS: MAGNESIUM 1.7 mg/dL (1.8-2.4); POTASSIUM 3.9 mmol/L (3.5-5.1)
[2016-12-06 20:05] VITALS: BP 134/49
[2016-12-07 03:26] VITALS: BP 167/76
[2016-12-07 04:24] VITALS: BP 150/66
[2016-12-07] MEDS ORDERED: AUGMENTIN 875-1 EACH PO (07:17)
[2016-12-07] MEDS ORDERED: LOPRESSOR25 PO (07:17)
[2016-12-07] MEDS ORDERED: HUMALOG MI100 UNIT/6 SUBQ (07:17)
[2016-12-07] MEDS ORDERED: PREDNISONE 20 M20 M1 PO (07:17)
[2016-12-07 08:48] VITALS: BP 173/77
[2016-12-07 09:36] LABS: ABG SAMPLE TYPE ARTERIAL; BE(vivo) 1.5 mmol/L (-2 to +3); HCO3 25.7 mmol/L (22.0-26.0); LACTATE 0.85 mmol/L (0.5-2.0); O2(CT) 12.8 mL/dL (15.0-23.0); PCO2 38.6 mmHg (35.0-45.0); pH 7.441 (7.360-7.450); sO2 91.2 % (92.0-98.0); tCO2 26.9 mmol/L (24.0-30.0)
[2016-12-07 09:37] LABS: STICK SITE L.BRACHIAL
[2016-12-07 11:04] LABS: HEMATOCRIT 29.6 % (37.0-47.0); HEMOGLOBIN 9.4 gm/dL (12.0-15.0)
== END 2016-12-07 12:46 | disposition left against medical advice (07) | DRG 870 ==
LOC: ER 17:05 → EROBS 19:23 → ICU 19:23 → 2N 12-02 17:54
PROVIDERS: Emergency Medicine; Family Medicine; Hospitalist; Internal Medicine; Internal Medicine Cardiovascular Disease; Internal Medicine Gastroenterology; Internal Medicine Pulmonary Disease; Nurse Practitioner; Nurse Practitioner Acute Care; Nurse Practitioner Adult Health
PROC: 02HV33Z Insertion of Infusion Device into Superior Vena Cava, Percutaneous Approach (ICD-10-PCS; 2016-11-25)
PROC: 5A1955Z Respiratory Ventilation, Greater than 96 Consecutive Hours (ICD-10-PCS; principal; 2016-11-26)
PROC: 0BH17EZ Insertion of Endotracheal Airway into Trachea, Via Natural or Artificial Opening (ICD-10-PCS; principal; 2016-11-26)
PROC: 0DJ08ZZ Inspection of Upper Intestinal Tract, Via Natural or Artificial Opening Endoscopic (ICD-10-PCS; 2016-12-06)
DX: A41.9 Sepsis, unspecified organism (principal); J18.9 Pneumonia, unspecified organism; G92 Toxic encephalopathy; J96.02 Acute respiratory failure with hypercapnia; J96.01 Acute respiratory failure with hypoxia; I50.33 Acute on chronic diastolic (congestive) heart failure; I21.4 Non-ST elevation (NSTEMI) myocardial infarction; J44.0 Chronic obstructive pulmonary disease with (acute) lower respiratory infection; K92.1 Melena; I13.0 Hypertensive heart and chronic kidney disease with heart failure and stage 1 through stage 4 chronic kidney disease, or unspecified chronic kidney disease; D62 Acute posthemorrhagic anemia; Z68.42 Body mass index [BMI] 45.0-49.9, adult; I25.10 Atherosclerotic heart disease of native coronary artery without angina pectoris; M19.90 Unspecified osteoarthritis, unspecified site; E03.9 Hypothyroidism, unspecified; E78.5 Hyperlipidemia, unspecified; M10.9 Gout, unspecified; N18.3 Chronic kidney disease, stage 3 (moderate); F31.9 Bipolar disorder, unspecified; G89.29 Other chronic pain; M54.9 Dorsalgia, unspecified; F17.210 Nicotine dependence, cigarettes, uncomplicated; K29.70 Gastritis, unspecified, without bleeding; E11.22 Type 2 diabetes mellitus with diabetic chronic kidney disease; E66.01 Morbid (severe) obesity due to excess calories; E11.65 Type 2 diabetes mellitus with hyperglycemia; F41.1 Generalized anxiety disorder; E87.6 Hypokalemia; Z53.21 Procedure and treatment not carried out due to patient leaving prior to being seen by health care provider; F20.9 Schizophrenia, unspecified; Z79.899 Other long term (current) drug therapy; Z88.8 Allergy status to other drugs, medicaments and biological substances; Z95.5 Presence of coronary angioplasty implant and graft
CPT/HCPCS: 10078; 10081; 27000; 62110; 62900; 70005